=== PATIENT | female | born 1970 | race African-American/Black ===

== ENCOUNTER 2017-04-08 10:59 | Outpatient (CLI) | payer OTHER ==
--- NOTE | 2017-04-08 11:36 | RAD ---
RIGHT THUMB THREE VIEWS: History: Thumb pain. FINDINGS/IMPRESSION: No fracture, dislocation, or bony destruction or osteophyte formation is identified. POS: [facility]
--- NOTE | 2017-04-08 12:21 | RAD ---
LEFT THUMB THREE VIEWS: History: Thumb pain. FINDINGS/IMPRESSION: No fracture, dislocation, bony destruction or osteophyte formation is seen. POS: [facility]
== END 2017-04-08 11:00 | disposition home or self-care (01) ==
LOC: RAD 10:59
PROVIDERS: ATTEND Physical Medicine & Rehabilitation
DX: M25.532 Pain in left wrist (principal); M25.531 Pain in right wrist